=== PATIENT | female | born 1950 | race Caucasian/White ===

== ENCOUNTER 2019-03-15 20:54 | Emergency (ER) | payer MEDICARE, OTHER ==
[~2019-03-15] VITALS: Ht 172.7 cm; Wt 87.5 kg
[~2019-03-15 20:54] MED LIST: AMOX1TAB10 PO; IBUP-1561 PO; MED4DP PO
[2019-03-15 21:07] VITALS: BP 117/76; PULSE 99; RESP 21; Ht 172.7 cm; Wt 87.5 kg
[2019-03-15] MEDS ORDERED: IBUPROFEN 200 MG TAB PO ONE (22:00)
[2019-03-15] MEDS ORDERED: CEFTRIAXONE 1 GM INJ IM ONE (22:00)
[2019-03-15] MEDS ORDERED: METHYLPREDNISOLONE 125 MG INJ IM ONE (22:00)
[2019-03-15] MEDS ORDERED: LIDOCAINE 1% (MDV) 20 ML INJ SC ONE (22:00)
== END 2019-03-15 22:30 | disposition home or self-care (01) ==
LOC: FTE 20:54
DX: J02.0 Streptococcal pharyngitis (principal); H66.003 Acute suppurative otitis media without spontaneous rupture of ear drum, bilateral
CPT/HCPCS: 96372; 99284; J0696; J2930